=== PATIENT | female | born 1985 | race Caucasian/White ===

== ENCOUNTER 2017-07-27 07:20 | Inpatient (IN) | payer BC ==
[2017-07-27] MEDS ORDERED: fentaNYL 100 MCG/2 ML SDV IVPUSH ONE (09:38)
[2017-07-27] MEDS ORDERED: fentaNYL 100 MCG/2 ML SDV IVPUSH PRN (09:41)
[2017-07-27] MEDS ORDERED: Lidocaine 1% 50 ML MDV INJECT ONE (10:36)
[2017-07-27] MEDS ORDERED: Oxytocin 10 Units/1 ML SDV IM ONE ×2 (12:00→15:40)
[2017-07-27] MEDS ORDERED: Mineral Oil 10 ML Bottle TOP ONE (12:00)
[2017-07-27] MEDS ORDERED: Sodium Chloride 0.9% 10 ML Syringe FLUSH PRN (13:06)
[2017-07-27] MEDS ORDERED: Ondansetron 4 MG/2 ML SDV IV PRN (13:06)
--- NOTE | 2017-07-27 13:19 | PCM.LDHP ---
L&D History of Present Illness - General Date of Service: 07/27/17 Admit Problem/Dx: Patient Status Order with Admit Dx/Problem 07/27/17 13:06 Patient Status [ADT] Routine Admission Diagnosis/Problem Admission Diagnosis/Problem Source of Information: Patient, Family, Old Records, RN Notes Reviewed History Limitations: Reports: No Limitations - History of Present Illness Introduction:: 32-year-old female presents to labor and delivery floor today with complaint of spontaneous rupture membranes, she is a 2 para 1 currently at 39-3/7 weeks weeks intrauterine gestation spontaneous rupture membranes at 6:30 this morning clear fluid. She is having good rhythmic contractions initial cervical exam by nursing 3 cm and an over 2 hour observation change to 6 cm consistent with labor pattern. At this time she has no particular complaints other than the uterine contractions Review of obstetrical data GBS is negative initial glucose screen 111 extremities negative hepatitis B negative, RPR is negative, rubella immune, antibody is negative, ABO is A+, hemoglobin 14.5, ultrasound May of this year shows good development no issues - Related Data Allergies/Adverse Reactions: Allergies Allergy/AdvReac Type Severity Reaction Status Date / Time No Known Allergies Allergy Verified 09/09/14 22:10 Home Medications: Home Meds Acetaminophen [Tylenol] 650 mg PO Q4H PRN 09/09/14 [History] Pnv with Ca,No.72/Iron/Fa [Pnv Plus Multivit Tab] 1 each PO DAILY 09/09 [History] Ranitidine [Zantac] 75 mg PO BID PRN 09/09/14 [History] Past Medical History Gastrointestinal History: Reports: GERD Other Oncologic History: 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 (leap procedure ) - Past Surgical History Other Female Surgeries/Procedures: leap procedure Oncologic Surgical History: Reports: None Social & Family History - Tobacco Use Smoking Status *Q: Never Smoker Second Hand Smoke Exposure: No - Caffeine Use Caffeine Use: Reports: Coffee - Alcohol Use Days Per Week of Alcohol Use: 0 - Recreational Drug Use Recreational Drug Use: No H&P Review of Systems - Review of Systems: Review Of Systems: See Below General: Reports: No Symptoms Pulmonary: Reports: No Symptoms Cardiovascular: Reports: No Symptoms Gastrointestinal: Reports: Abdominal Pain (Contractions) Genitourinary: Reports: Other (Leakage of fluid) Neurological: Reports: No Symptoms L&D Exam - Exam Exam: See Below - Vital Signs Vital Signs: Last Vital Signs Temp 97.8 F 07/27/17 11:05 Pulse 80 07/27/17 11:05 Resp 16 07/27/17 11:05 BP 124/67 07/27/17 11:05 Pulse Ox Weight: 70.76 kg - OB Specific Contraction Duration (sec): 70-180 Contraction Frequency (min): 1.5-4 Contraction Intensity: Mild to Moderate Movement: Active Heart Tones: Present Heart Tones per Min: 130 Heart Rate (FHR) Variability: Moderate (6-25 bmp) - Exam General: Alert, Oriented HEENT: Other (Pupils equal round) Lungs: Clear to Auscultation, Normal Respiratory Effort Cardiovascular: Regular Rate, Regular Rhythm GI/Abdominal Exam: Soft Back Exam: Normal Inspection, Full Range of Motion - Patient Data Lab Results Last 24 hrs: Laboratory Results - last 24 hr 07/27/17 07/27/17 07/27/17 Range/Units 07:34 07:36 07:41 WBC 11.1 H (4.5-11.0) K/uL RBC 3.99 (3.30-5.50) M/uL Hgb 12.2 (12.0-15.0) g/dL Hct 37.0 (36.0-48.0) % MCV 93 (80-98) fL MCH 31 (27-31) pg MCHC 33 (32-36) % Plt Count 224 (150-400) K/uL Neut % (Auto) 73 H (36-66) % Lymph % (Auto) 17 L (24-44) % [place] % (Auto) 9 H (2-6) % Eos % (Auto) 1 L (2-4) % Baso % (Auto) 0 (0-1) % Urine Color Yellow Urine Appearance Slightly cloudy Urine pH 6.5 (4.5-8.0) Ur Specific [place] 1.010 (1.008-1.030) Urine Protein Negative (NEGATIVE) mg/dL Urine Glucose (UA) Normal (NEGATIVE) mg/dL Urine Ketones Negative (NEGATIVE) mg/dL Urine Occult Blood Moderate (NEGATIVE) Urine Nitrite Negative (NEGATIVE) Urine Bilirubin Negative (NEGATIVE) Urine Urobilinogen Normal (NORMAL) mg/dL Ur Leukocyte Esterase Negative (NEGATIVE) Urine RBC 5-10 H (0-5) Urine WBC 0-5 (0-5) Ur Epithelial Cells Moderate Amorphous Sediment Not seen Urine Bacteria Moderate Urine Mucus Moderate Urine Opiates Screen Negative (NEGATIVE) Ur Oxycodone Screen Negative (NEGATIVE) Urine Methadone Screen Negative (NEGATIVE) Ur Propoxyphene Screen Negative (NEGATIVE) Ur Barbiturates Screen Negative (NEGATIVE) Ur Tricyclics Screen Negative (NEGATIVE) Ur Phencyclidine Scrn Negative (NEGATIVE) Ur Amphetamine Screen Negative (NEGATIVE) U Methamphetamines Scrn Negative (NEGATIVE) Urine MDMA Screen Negative (NEGATIVE) U Benzodiazepines Scrn Negative (NEGATIVE) U Cocaine Metab Screen Negative (NEGATIVE) U Marijuana (THC) Screen Negative (NEGATIVE) Result Diagrams: 07/27/17 07:41 - Problem List (1) 39 weeks gestation of SNOMED Code(s): 28345664 ICD Code: Z3A.39 - 39 WEEKS GESTATION OF Status: Acute Priority : High Current Visit: Yes (2) Spontaneous rupture of membranes SNOMED Code(s): 012496039 ICD Code: [id number] - Status: Acute Priority: High Current Visit: Yes Onset Date: 07/27/17 Problem Details: 6:30 this morning Problem List Initiated/Reviewed/Updated: Yes Orders Last 24hrs: Active Orders 24 hr Category Date Time Status Patient Status [ADT] Routine ADT 07/27/17 13:06 Ordered Communication Order [RC] ASDIRECTED Care 07/27/17 13:06 Ordered Heart Tones [RC] PER UNIT ROUTINE Care 07/27/17 13:06 Ordered Intake and Output [RC] PRN Care 07/27/17 13:06 Ordered Notify Provider [RC] PRN Care 07/27/17 13:06 Ordered Peripheral IV Care [RC] . DIRECTED Care 07/27/17 13:08 Ordered Up ad Ximena [RC] ASDIRECTED Care 07/27/17 13:06 Ordered Vital Signs [RC] PER UNIT ROUTINE Care 07/27/17 13:06 Ordered Nothing Per Oral Diet [DIET] Diet 07/27/17 Dinner Ordered Ondansetron [Zofran] Med 07/27/17 13:06 Ordered 4 mg IV Q4H PRN Sodium Chloride 0.9% [Saline Flush] Med 07/27/17 13:06 Ordered 10 ml FLUSH ASDIRECTED PRN fentaNYL [Sublimaze] Med 07/27/17 09:41 Active 50 mcg IVPUSH Q1H PRN Peripheral IV Insertion Adult [OM.PC] Routine Oth 07/27/17 13:06 Ordered Saline Lock Insert [OM.PC] Routine Oth 07/27/17 13:06 Ordered Resuscitation Status Routine Resus Stat 07/27/17 13:06 Ordered Medication Orders Fentanyl (Sublimaze) 50 mcg IVPUSH Q1H PRN PRN Reason: Pain (severe 7-10) Ondansetron HCl (Zofran) 4 mg IV Q4H PRN PRN Reason: Nausea/Vomiting Sodium Chloride (Saline Flush) 10 ml FLUSH ASDIRECTED PRN PRN Reason: Keep Vein Open Assessment/Plan Comment:: Assessment 32-year-old female 2 para 1 currently at 39-3/7 weeks intrauterine gestation with spontaneous rupture membrane Gastroesophageal reflux disease Plan GBS was negative, is declining epidural or minimal pain medication at this time , plan for spontaneous vaginal delivery with routine care
[2017-07-27] MEDS ORDERED: Acetaminophen 325 MG Tab, 50 Tab Bulk Bottle PO PRN (14:35)
[2017-07-27] MEDS ORDERED: Ibuprofen 200 MG Tab, 24 Tab Bulk Bottle PO PRN (14:37)
[2017-07-27] MEDS ORDERED: Aluminum Hydroxide/Magnesium Hydroxide/Simethicone Susp 30 ML Cup PO PRN (17:31)
[2017-07-27] MEDS ORDERED: Docusate Sodium 100 MG Cap PO PRN (17:31)
[2017-07-27] MEDS ORDERED: Witch Hazel Medicated Pads 100/Jar TOP PRN (17:31)
[2017-07-27] MEDS ORDERED: Benzocaine 20% Top Spray 56 GM Bottle TOP PRN (17:31)
[2017-07-27] MEDS ORDERED: Lanolin 100% Cream 40 GM Tube TOP PRN (17:31)
--- NOTE | 2017-07-27 17:41 | PCM.DEL ---
L & D Note - General Info Date of Service: 07/27/17 - Delivery Note Labor: Spontaneous Delivery Outcome: Livebirth Delivery Mode: Spontaneous Presentation: Left Occiput Anterior (JASMIN) Nuchal Cord: None Anesthesia Type: None Amniotic Fluid Description: Clear Episiotomy Type: None Laceration: 2nd Degree Suture type: Vicryl Suture size: 3-0 Placenta: Intact, Spontaneous Cord: 3 Vessels Estimated Blood Loss: 200 Resuscitation Needed: No : Stimulated, Warmed Score 1 min: 9 Score 5 min: 9 Second Stage Interventions: Reports: Laboring Down, Pushing, Feet in Foot Rests , Pushing, Knee Chest Position, Pushing, McRobert's Position, Pushing, Pulls Own Legs Back Delivery Comments (Free Text/Narrative):: Presented to labor and delivery for spontaneous ruptured membranes, was allowed to labor throughout the day, when complete went to pushing. After 2 pushes baby was delivered in occiput anterior fashion anterior shoulder was spontaneous was passed to mom's chest for warming and stimulation. Cord was cut and clamped after cessation of pulses, cord was cut by father of the baby. Next attention was turned to mom while nursing staff continue to work with baby. Cord blood was collected. Next the placenta was drained. After approximately 15 minutes placenta was delivered in a Grimaldo fashion 3 vessel cord intact placenta. Lap sponge was placed in the vagina for inspection of the vaginal vault revealed a second-degree laceration. A total of 15 mL lidocaine without epinephrine was used to anesthetize the area. Laceration was repaired with 3-0 Vicryl in a running fashion. Second inspection of the vaginal vault revealed apex of the laceration that was repaired. No cervical lacerations were noted no other significant vaginal vault lacerations were appreciated. Third and final inspection of vaginal vaults revealed good repair and hemostasis of the laceration. Rectal exam revealed good sphincter tone no tears were noted in the rectal vault. Induction Criteria - Induction Gestational Age >/= 39 wks: Yes Estimated Pelvis: Reports: Adequate Reassuring Monitoring Strip: Yes - General Info Date of Service: 07/27/17 Functional Status: Reports: Pain Controlled - Review of Systems General: Reports: No Symptoms HEENT: Reports: No Symptoms Pulmonary: Reports: No Symptoms Cardiovascular: Reports: No Symptoms Gastrointestinal: Reports: No Symptoms Genitourinary: Reports: Pain - Patient Data Vitals - Most Recent: Last Vital Signs Temp 99.3 F 07/27/17 15:32 Pulse 83 07/27/17 16:55 Resp 16 07/27/17 16:55 BP 106/70 07/27/17 16:55 Pulse Ox Weight - Most Recent: 70.76 kg I&O - Last 24 Hours: Intake & Output 07/27/17 07/27/17 07/27/17 06:59 14:59 22:59 Intake Total 600 Output Total 200 Balance 600 -200 Lab Results Last 24 Hours: Laboratory Results - last 24 hr 07/27/17 07/27/17 07/27/17 Range/Units 07:34 07:36 07:41 WBC 11.1 H (4.5-11.0) K/uL RBC 3.99 (3.30-5.50) M/uL Hgb 12.2 (12.0-15.0) g/dL Hct 37.0 (36.0-48.0) % MCV 93 (80-98) fL MCH 31 (27-31) pg MCHC 33 (32-36) % Plt Count 224 (150-400) K/uL Neut % (Auto) 73 H (36-66) % Lymph % (Auto) 17 L (24-44) % [place] % (Auto) 9 H (2-6) % Eos % (Auto) 1 L (2-4) % Baso % (Auto) 0 (0-1) % Urine Color Yellow Urine Appearance Slightly cloudy Urine pH 6.5 (4.5-8.0) Ur Specific [place] 1.010 (1.008-1.030) Urine Protein Negative (NEGATIVE) mg/dL Urine Glucose (UA) Normal (NEGATIVE) mg/dL Urine Ketones Negative (NEGATIVE) mg/dL Urine Occult Blood Moderate (NEGATIVE) Urine Nitrite Negative (NEGATIVE) Urine Bilirubin Negative (NEGATIVE) Urine Urobilinogen Normal (NORMAL) mg/dL Ur Leukocyte Esterase Negative (NEGATIVE) Urine RBC 5-10 H (0-5) Urine WBC 0-5 (0-5) Ur Epithelial Cells Moderate Amorphous Sediment Not seen Urine Bacteria Moderate Urine Mucus Moderate Urine Opiates Screen Negative (NEGATIVE) Ur Oxycodone Screen Negative (NEGATIVE) Urine Methadone Screen Negative (NEGATIVE) Ur Propoxyphene Screen Negative (NEGATIVE) Ur Barbiturates Screen Negative (NEGATIVE) Ur Tricyclics Screen Negative (NEGATIVE) Ur Phencyclidine Scrn Negative (NEGATIVE) Ur Amphetamine Screen Negative (NEGATIVE) U Methamphetamines Scrn Negative (NEGATIVE) Urine MDMA Screen Negative (NEGATIVE) U Benzodiazepines Scrn Negative (NEGATIVE) U Cocaine Metab Screen Negative (NEGATIVE) U Marijuana (THC) Screen Negative (NEGATIVE) Med Orders - Current: Current Medications Acetaminophen (Tylenol Bulk Bottle) 650 mg PO Q4H PRN PRN Reason: Pain Al Hydroxide/Mg Hydroxide (Mag-Al Plus) 30 ml PO Q8H PRN PRN Reason: Heartburn Benzocaine (Ksgv-S-Tzivvdr 20% [place]) 0 gm TOP Q4H PRN PRN Reason: Perineal Comfort Measure Docusate Sodium (Colace) 100 mg PO BID PRN PRN Reason: Constipation Emollient Ointment (Lansinoh Hpa) 1 gm TOP ASDIRECTED PRN PRN Reason: Sore Nipples Fentanyl (Sublimaze) 50 mcg IVPUSH Q1H PRN PRN Reason: Pain (severe 7-10) Last Admin: 07/27/17 16:01 Dose: 25 mcg Ibuprofen (Motrin Bulk Bottle) 200 mg PO Q6H PRN PRN Reason: Pain Ondansetron HCl (Zofran) 4 mg IV Q4H PRN PRN Reason: Nausea/Vomiting Sodium Chloride (Saline Flush) 10 ml FLUSH ASDIRECTED PRN PRN Reason: Keep Vein Open Witloretta Mcelroy (Tucks) 1 pad TOP ASDIRECTED PRN PRN Reason: Hemorrhoids Discontinued Medications Fentanyl (Sublimaze) 50 mcg IVPUSH ONETIME ONE Stop: 07/27/17 09:39 Last Admin: 07/27/17 10:36 Dose: Not Given Oxytocin/Sodium Chloride (Pitocin In Ns 20 Units/1,000 Ml) 20 unit in 1,000 mls @ 2,997 mls/hr IV ONETIME ONE; 999 MUNITS/MIN PRN Reason: Protocol Stop: 07/27/17 12:20 Lidocaine HCl (Xylocaine 1%) 0 ml INJECT ONETIME ONE Stop: 07/27/17 10:37 Last Admin: 07/27/17 16:52 Dose: 50 ml Mineral Oil (Muri-Lube) 15 ml TOP ONETIME ONE Stop: 07/27/17 12:01 Oxytocin (Pitocin) 20 unit IM ONETIME ONE Stop: 07/27/17 12:01 Oxytocin (Pitocin) 10 unit IM ONETIME ONE Stop: 07/27/17 15:41 Last Admin: 07/27/17 16:52 Dose: 10 unit - Exam General: Alert, Oriented HEENT: Pupils Equal Lungs: Normal Respiratory Effort GI/Abdominal Exam: Soft, Other (Firm fundus below the umbilicus) (Female) Exam: Other (See delivery note for details) - Problem List & Annotations (1) 39 weeks gestation of SNOMED Code(s): 49985715 Code(s): Z3A.39 - 39 WEEKS GESTATION OF Status: Acute Priority : High Current Visit: Yes (2) Spontaneous rupture of membranes SNOMED Code(s): 678339122 Code(s): GCW0501 - Status: Acute Priority: High Current Visit: Yes Onset Date: 07/27/17 Annotation/Comment:: 6:30 this morning (3) Spontaneous vaginal delivery SNOMED Code(s): 94097362 Code(s): O80 - ENCOUNTER FOR FULL-TERM UNCOMPLICATED DELIVERY Status: Acute Current Visit: Yes - Problem List Review Problem List Initiated/Reviewed/Updated: Yes - My Orders Last 24 Hours: My Active Orders 07/27/17 09:41 fentaNYL [Sublimaze] 50 mcg IVPUSH Q1H PRN 07/27/17 13:06 Patient Status [ADT] Routine Communication Order [RC] ASDIRECTED Heart Tones [RC] PER UNIT ROUTINE Intake and Output [RC] PRN Notify Provider [RC] PRN Up ad Ximena [RC] ASDIRECTED Vital Signs [RC] PER UNIT ROUTINE Ondansetron [Zofran] 4 mg IV Q4H PRN Sodium Chloride 0.9% [Saline Flush] 10 ml FLUSH ASDIRECTED PRN Peripheral IV Insertion Adult [OM.PC] Routine Saline Lock Insert [OM.PC] Routine Resuscitation Status Routine 07/27/17 13:08 Peripheral IV Care [RC] . DIRECTED 07/27/17 14:35 Acetaminophen [Tylenol Bulk Bottle] 650 mg PO Q4H PRN 07/27/17 14:37 Ibuprofen [Motrin Bulk Bottle] 200 mg PO Q6H PRN 07/27/17 17:31 May Shower [RC] ASDIRECTED Alum Hydrox/Mag Hydrox/Simeth [Mag-Al Plus] 30 ml PO Q8H PRN Benzocaine [Jpto-L-Pszuzkg 20% [place]] See Dose Instructions TOP Q4H PRN Docusate Sodium [Colace] 100 mg PO BID PRN Lanolin [Lansinoh HPA] 1 gm TOP ASDIRECTED PRN Witch Lilibeth [Tucks] 1 pad TOP ASDIRECTED PRN Assess Lochia [WOMSER] Per Unit Routine Assess Uterine Involution [WOMSER] Per Unit Routine Breast Pump [WOMSER] Per Unit Routine 07/27/17 17:32 Patient Status [ADT] Routine Vital Signs [RC] PFP 07/27/17 17:33 Ice Therapy [OM.PC] Per Unit Routine Perineal Care [OM.PC] Per Unit Routine Sitz Bath [OM.PC] Per Unit Routine 07/27/17 Dinner Nothing Per Oral Diet [DIET] 07/28/17 05:11 CBC WITH AUTO DIFF [HEME] AM - Plan Plan:: Assessment 32-year-old female 2 para 2 status post spontaneous vaginal delivery viable male day one Gastroesophageal reflux disease Plan [facility] kit for pain control, routine care, plan for circumcision this weekend
--- NOTE | 2017-07-28 07:14 | PCM.PN ---
- General Info Date of Service: 07/28/17 Admission Dx/Problem (Free Text): Patient Status Order with Admit Dx/Problem 07/27/17 13:06 Patient Status [ADT] Routine Admission Diagnosis/Problem Admission Diagnosis/Problem Functional Status: Reports: Pain Controlled - Review of Systems General: Reports: No Symptoms HEENT: Reports: No Symptoms Pulmonary: Reports: No Symptoms Cardiovascular: Reports: No Symptoms Gastrointestinal: Reports: No Symptoms Genitourinary: Reports: No Symptoms Musculoskeletal: Reports: No Symptoms Skin: Reports: No Symptoms - Patient Data Vitals - Most Recent: Last Vital Signs Temp 98.3 F 07/28/17 02:06 Pulse 88 07/28/17 02:06 Resp 18 07/28/17 02:06 BP 111/56 L 07/28/17 02:06 Pulse Ox 98 07/28/17 02:06 Weight - Most Recent: 70.76 kg I&O - Last 24 Hours: Intake & Output 07/27/17 07/28/17 07/28/17 22:59 06:59 14:59 Intake Total 600 Output Total 200 Balance -200 600 Lab Results Last 24 Hours: Laboratory Results - last 24 hr 07/27/17 07/27/17 07/27/17 Range/Units 07:34 07:36 07:41 WBC 11.1 H (4.5-11.0) K/uL RBC 3.99 (3.30-5.50) M/uL Hgb 12.2 (12.0-15.0) g/dL Hct 37.0 (36.0-48.0) % MCV 93 (80-98) fL MCH 31 (27-31) pg MCHC 33 (32-36) % Plt Count 224 (150-400) K/uL Neut % (Auto) 73 H (36-66) % Lymph % (Auto) 17 L (24-44) % [place] % (Auto) 9 H (2-6) % Eos % (Auto) 1 L (2-4) % Baso % (Auto) 0 (0-1) % Urine Color Yellow Urine Appearance Slightly cloudy Urine pH 6.5 (4.5-8.0) Ur Specific [place] 1.010 (1.008-1.030) Urine Protein Negative (NEGATIVE) mg/dL Urine Glucose (UA) Normal (NEGATIVE) mg/dL Urine Ketones Negative (NEGATIVE) mg/dL Urine Occult Blood Moderate (NEGATIVE) Urine Nitrite Negative (NEGATIVE) Urine Bilirubin Negative (NEGATIVE) Urine Urobilinogen Normal (NORMAL) mg/dL Ur Leukocyte Esterase Negative (NEGATIVE) Urine RBC 5-10 H (0-5) Urine WBC 0-5 (0-5) Ur Epithelial Cells Moderate Amorphous Sediment Not seen Urine Bacteria Moderate Urine Mucus Moderate Urine Opiates Screen Negative (NEGATIVE) Ur Oxycodone Screen Negative (NEGATIVE) Urine Methadone Screen Negative (NEGATIVE) Ur Propoxyphene Screen Negative (NEGATIVE) Ur Barbiturates Screen Negative (NEGATIVE) Ur Tricyclics Screen Negative (NEGATIVE) Ur Phencyclidine Scrn Negative (NEGATIVE) Ur Amphetamine Screen Negative (NEGATIVE) U Methamphetamines Scrn Negative (NEGATIVE) Urine MDMA Screen Negative (NEGATIVE) U Benzodiazepines Scrn Negative (NEGATIVE) U Cocaine Metab Screen Negative (NEGATIVE) U Marijuana (THC) Screen Negative (NEGATIVE) 07/28/17 Range/Units 05:46 WBC 20.0 H (4.5-11.0) K/uL RBC 3.66 (3.30-5.50) M/uL Hgb 11.3 L (12.0-15.0) g/dL Hct 33.8 L (36.0-48.0) % MCV 92 (80-98) fL MCH 31 (27-31) pg MCHC 33 (32-36) % Plt Count 211 (150-400) K/uL Neut % (Auto) 81 H (36-66) % Lymph % (Auto) 11 L (24-44) % [place] % (Auto) 9 H (2-6) % Eos % (Auto) 0 L (2-4) % Baso % (Auto) 0 (0-1) % Urine Color Urine Appearance Urine pH (4.5-8.0) Ur Specific [place] (1.008-1.030) Urine Protein (NEGATIVE) mg/dL Urine Glucose (UA) (NEGATIVE) mg/dL Urine Ketones (NEGATIVE) mg/dL Urine Occult Blood (NEGATIVE) Urine Nitrite (NEGATIVE) Urine Bilirubin (NEGATIVE) Urine Urobilinogen (NORMAL) mg/dL Ur Leukocyte Esterase (NEGATIVE) Urine RBC (0-5) Urine WBC (0-5) Ur Epithelial Cells Amorphous Sediment Urine Bacteria Urine Mucus Urine Opiates Screen (NEGATIVE) Ur Oxycodone Screen (NEGATIVE) Urine Methadone Screen (NEGATIVE) Ur Propoxyphene Screen (NEGATIVE) Ur Barbiturates Screen (NEGATIVE) Ur Tricyclics Screen (NEGATIVE) Ur Phencyclidine Scrn (NEGATIVE) Ur Amphetamine Screen (NEGATIVE) U Methamphetamines Scrn (NEGATIVE) Urine MDMA Screen (NEGATIVE) U Benzodiazepines Scrn (NEGATIVE) U Cocaine Metab Screen (NEGATIVE) U Marijuana (THC) Screen (NEGATIVE) Med Orders - Current: Current Medications Acetaminophen (Tylenol Bulk Bottle) 650 mg PO Q4H PRN PRN Reason: Pain Last Admin: 07/27/17 18:20 Dose: 1 bottle Al Hydroxide/Mg Hydroxide (Mag-Al Plus) 30 ml PO Q8H PRN PRN Reason: Heartburn Benzocaine (Ysmi-G-Yzuyxjg 20% [place]) 0 gm TOP Q4H PRN PRN Reason: Perineal Comfort Measure Docusate Sodium (Colace) 100 mg PO BID PRN PRN Reason: Constipation Emollient Ointment (Lansinoh Hpa) 1 gm TOP ASDIRECTED PRN PRN Reason: Sore Nipples Fentanyl (Sublimaze) 50 mcg IVPUSH Q1H PRN PRN Reason: Pain (severe 7-10) Last Admin: 07/27/17 16:01 Dose: 25 mcg Ibuprofen (Motrin Bulk Bottle) 200 mg PO Q6H PRN PRN Reason: Pain Last Admin: 07/27/17 18:21 Dose: 1 bottle Ondansetron HCl (Zofran) 4 mg IV Q4H PRN PRN Reason: Nausea/Vomiting Sodium Chloride (Saline Flush) 10 ml FLUSH ASDIRECTED PRN PRN Reason: Keep Vein Open Gerard Mcelroy ([place]) 1 pad TOP ASDIRECTED PRN PRN Reason: Hemorrhoids Discontinued Medications Fentanyl (Sublimaze) 50 mcg IVPUSH ONETIME ONE Stop: 07/27/17 09:39 Last Admin: 07/27/17 10:36 Dose: Not Given Oxytocin/Sodium Chloride (Pitocin In Ns 20 Units/1,000 Ml) 20 unit in 1,000 mls @ 2,997 mls/hr IV ONETIME ONE; 999 MUNITS/MIN PRN Reason: Protocol Stop: 07/27/17 12:20 Last Admin: 07/27/17 18:15 Dose: Not Given Lidocaine HCl (Xylocaine 1%) 0 ml INJECT ONETIME ONE Stop: 07/27/17 10:37 Last Admin: 07/27/17 16:52 Dose: 50 ml Mineral Oil (Muri-Lube) 15 ml TOP ONETIME ONE Stop: 07/27/17 12:01 Last Admin: 07/27/17 18:15 Dose: Not Given Oxytocin (Pitocin) 20 unit IM ONETIME ONE Stop: 07/27/17 12:01 Last Admin: 07/27/17 18:58 Dose: Not Given Oxytocin (Pitocin) 10 unit IM ONETIME ONE Stop: 07/27/17 15:41 Last Admin: 07/27/17 16:52 Dose: 10 unit - Exam General: Alert, Oriented HEENT: Pupils Equal Lungs: Clear to Auscultation, Normal Respiratory Effort Cardiovascular: Regular Rate, Regular Rhythm GI/Abdominal Exam: Other (Firm fundus 2 cm below the umbilicus per nursing) - Problem List & Annotations (1) 39 weeks gestation of SNOMED Code(s): 70013084 Code(s): Z3A.39 - 39 WEEKS GESTATION OF Status: Acute Priority : High Current Visit: Yes (2) Spontaneous rupture of membranes SNOMED Code(s): 056786232 Code(s): EEP4618 - Status: Acute Priority: High Current Visit: Yes Onset Date: 07/27/17 Annotation/Comment:: 6:30 this morning (3) Spontaneous vaginal delivery SNOMED Code(s): 42454140 Code(s): O80 - ENCOUNTER FOR FULL-TERM UNCOMPLICATED DELIVERY Status: Acute Current Visit: Yes - Problem List Review Problem List Initiated/Reviewed/Updated: Yes - My Orders Last 24 Hours: My Active Orders 07/27/17 09:41 fentaNYL [Sublimaze] 50 mcg IVPUSH Q1H PRN 07/27/17 13:06 Patient Status [ADT] Routine Heart Tones [RC] PER UNIT ROUTINE Intake and Output [RC] PRN Notify Provider [RC] PRN Up ad Ximena [RC] ASDIRECTED Ondansetron [Zofran] 4 mg IV Q4H PRN Sodium Chloride 0.9% [Saline Flush] 10 ml FLUSH ASDIRECTED PRN Peripheral IV Insertion Adult [OM.PC] Routine Saline Lock Insert [OM.PC] Routine Resuscitation Status Routine 07/27/17 13:08 Peripheral IV Care [RC] . DIRECTED 07/27/17 14:35 Acetaminophen [Tylenol Bulk Bottle] 650 mg PO Q4H PRN 07/27/17 14:37 Ibuprofen [Motrin Bulk Bottle] 200 mg PO Q6H PRN 07/27/17 17:31 May Shower [RC] ASDIRECTED Alum Hydrox/Mag Hydrox/Simeth [Mag-Al Plus] 30 ml PO Q8H PRN Benzocaine [Incn-Y-Ltvxkvx 20% [place]] See Dose Instructions TOP Q4H PRN Docusate Sodium [Colace] 100 mg PO BID PRN Lanolin [Lansinoh HPA] 1 gm TOP ASDIRECTED PRN Witch Lilibeth [Tucks] 1 pad TOP ASDIRECTED PRN Assess Lochia [WOMSER] Per Unit Routine Assess Uterine Involution [WOMSER] Per Unit Routine Breast Pump [WOMSER] Per Unit Routine 07/27/17 17:32 Patient Status [ADT] Routine Vital Signs [RC] PFP 07/27/17 17:33 Ice Therapy [OM.PC] Per Unit Routine Perineal Care [OM.PC] Per Unit Routine Sitz Bath [OM.PC] Per Unit Routine 07/28/17 Breakfast Regular Diet [DIET] - Plan Plan:: Assessment 32-year-old female 2 para 2 status post spontaneous vaginal delivery viable male post delivery day 2 Gastroesophageal reflux disease Plan [facility] kit for pain control, routine care, possible discharge this evening
[2017-07-28 11:10] VITALS: BP 103/69
--- NOTE | 2017-07-28 17:11 | PCM.DCSUM1 ---
Discharge Summary - Hospital Course HPI Initial Comments: 32-year-old female 2 para 1 currently at 39-3/7 weeks intrauterine gestation with spontaneous rupture membrane presented to labor and delivery floor was allowed to progress through labor. Spontaneous vaginal delivery of viable male infant. No complications during or . On day of discharge showed doing well no nausea vomiting shortness breath or chest pain ambulating tolerating diet decreased lochia - Discharge Data Discharge Date: 07/28/17 Discharge Disposition: Home, Self-Care 01 Condition: Good - Discharge Diagnosis/Problem(s) (1) 39 weeks gestation of SNOMED Code(s): 57158959 ICD Code: Z3A.39 - 39 WEEKS GESTATION OF Status: Acute Priority : High Current Visit: Yes (2) Spontaneous rupture of membranes SNOMED Code(s): 404641733 ICD Code: [id number] - Status: Acute Priority: High Current Visit: Yes Onset Date: 07/27/17 Problem Details: 6:30 this morning (3) Spontaneous vaginal delivery SNOMED Code(s): 26705266 ICD Code: O80 - ENCOUNTER FOR FULL-TERM UNCOMPLICATED DELIVERY Status: Acute Current Visit: Yes - Patient Instructions Diet: Regular Diet as Tolerated Activity: Apply Ice, As Tolerated Activity, Other: Nothing per vagina 6 weeks Driving: May Drive Today Showering/Bathing: September Shower Wound/Incision Care: Keep Operative Site/Wound Site Clean and Dry Notify Provider of: Fever, Increased Pain, Swelling and Redness, Drainage - Discharge Plan Home Medications: Home Meds Acetaminophen [Tylenol] 650 mg PO Q4H PRN 09/09/14 [History] Pnv with Ca,No.72/Iron/Fa [Pnv Plus Multivit Tab] 1 each PO DAILY 09/09 [History] Ranitidine [Zantac] 75 mg PO BID PRN 09/09/14 [History] - Discharge Summary/Plan Comment DC Time >30 min.: No - General Info Date of Service: 07/28/17 Functional Status: Reports: Pain Controlled - Review of Systems General: Reports: No Symptoms Pulmonary: Reports: No Symptoms Cardiovascular: Reports: No Symptoms Gastrointestinal: Reports: No Symptoms Genitourinary: Reports: No Symptoms - Patient Data Vitals - Most Recent: Last Vital Signs Temp 96.9 F 07/28/17 11:09 Pulse 87 07/28/17 11:09 Resp 16 07/28/17 11:09 BP 103/69 07/28/17 11:09 Pulse Ox 98 07/28/17 11:09 Weight - Most Recent: 70.76 kg I&O - Last 24 hours: Intake & Output 07/28/17 07/28/17 07/28/17 06:59 14:59 22:59 Intake Total 600 1150 Balance 600 1150 Lab Results - Last 24 hrs: Laboratory Results - last 24 hr 07/28/17 Range/Units 05:46 WBC 20.0 H (4.5-11.0) K/uL RBC 3.66 (3.30-5.50) M/uL Hgb 11.3 L (12.0-15.0) g/dL Hct 33.8 L (36.0-48.0) % MCV 92 (80-98) fL MCH 31 (27-31) pg MCHC 33 (32-36) % Plt Count 211 (150-400) K/uL Neut % (Auto) 81 H (36-66) % Lymph % (Auto) 11 L (24-44) % Mcminn % (Auto) 9 H (2-6) % Eos % (Auto) 0 L (2-4) % Baso % (Auto) 0 (0-1) % Med Orders - Current: Current Medications Acetaminophen (Tylenol Bulk Bottle) 650 mg PO Q4H PRN PRN Reason: Pain Last Admin: 07/27/17 18:20 Dose: 1 bottle Al Hydroxide/Mg Hydroxide (Mag-Al Plus) 30 ml PO Q8H PRN PRN Reason: Heartburn Benzocaine (Cyzo-F-Kunhrre 20% Wells) 0 gm TOP Q4H PRN PRN Reason: Perineal Comfort Measure Docusate Sodium (Colace) 100 mg PO BID PRN PRN Reason: Constipation Last Admin: 07/28/17 08:39 Dose: 100 mg Emollient Ointment (Lansinoh Hpa) 1 gm TOP ASDIRECTED PRN PRN Reason: Sore Nipples Ibuprofen (Motrin Bulk Bottle) 200 mg PO Q6H PRN PRN Reason: Pain Last Admin: 07/27/17 18:21 Dose: 1 bottle Ondansetron HCl (Zofran) 4 mg IV Q4H PRN PRN Reason: Nausea/Vomiting Sodium Chloride (Saline Flush) 10 ml FLUSH ASDIRECTED PRN PRN Reason: Keep Vein Open Witloretta Mcelroy (Tucks) 1 pad TOP ASDIRECTED PRN PRN Reason: Hemorrhoids Discontinued Medications Fentanyl (Sublimaze) 50 mcg IVPUSH ONETIME ONE Stop: 07/27/17 09:39 Last Admin: 07/27/17 10:36 Dose: Not Given Fentanyl (Sublimaze) 50 mcg IVPUSH Q1H PRN PRN Reason: Pain (severe 7-10) Last Admin: 07/27/17 16:01 Dose: 25 mcg Oxytocin/Sodium Chloride (Pitocin In Ns 20 Units/1,000 Ml) 20 unit in 1,000 mls @ 2,997 mls/hr IV ONETIME ONE; 999 MUNITS/MIN PRN Reason: Protocol Stop: 07/27/17 12:20 Last Admin: 07/27/17 18:15 Dose: Not Given Lidocaine HCl (Xylocaine 1%) 0 ml INJECT ONETIME ONE Stop: 07/27/17 10:37 Last Admin: 07/27/17 16:52 Dose: 50 ml Mineral Oil (Muri-Lube) 15 ml TOP ONETIME ONE Stop: 07/27/17 12:01 Last Admin: 07/27/17 18:15 Dose: Not Given Oxytocin (Pitocin) 20 unit IM ONETIME ONE Stop: 07/27/17 12:01 Last Admin: 07/27/17 18:58 Dose: Not Given Oxytocin (Pitocin) 10 unit IM ONETIME ONE Stop: 07/27/17 15:41 Last Admin: 07/27/17 16:52 Dose: 10 unit - Exam General: Reports: Alert, Oriented HEENT: Reports: Pupils Equal Neck: Reports: Supple Lungs: Reports: Clear to Auscultation, Normal Respiratory Effort Cardiovascular: Reports: Regular Rate, Regular Rhythm GI/Abdominal Exam: Soft *Q Meaningful Use (DIS) - VTE *Q VTE Criteria *Q: - Stroke *Q Stroke Criteria *Q: - AMI *Q AMI Criteria *Q:
== END 2017-07-28 17:45 | disposition home or self-care (01) | DRG 560 ==
LOC: JP.OB 07:20 → JP.MS 16:43 → OBSVTOIN 16:43 → JP.OB 16:43
PROVIDERS: ADMIT Family Medicine; ATTEND Family Medicine
PROC: 10E0XZZ Delivery of Products of Conception, External Approach (ICD-10-PCS; principal; 2017-07-27)
PROC: 0KQM0ZZ Repair Perineum Muscle, Open Approach (ICD-10-PCS; 2017-07-27)
PROC: 6A550ZT Pheresis of Cord Blood Stem Cells, Single (ICD-10-PCS; 2017-07-27)
DX: O70.1 Second degree perineal laceration during delivery (principal); O99.62 Diseases of the digestive system complicating childbirth; Z3A.39 39 weeks gestation of pregnancy; Z37.0 Single live birth; K21.9 Gastro-esophageal reflux disease without esophagitis
CPT/HCPCS: 36415; 59409; 80305; 81001; 85025; A9270-GY; J2590; J3010